=== PATIENT | male | born 1965 | race Caucasian/White ===

== ENCOUNTER 2017-06-23 19:25 | Emergency (ER) | payer OTHER ==
[2017-06-23] MEDS ORDERED: KETOROLAC TROMETHAMINE 60 MG/2 ML VIAL IM ONE (19:53)
--- NOTE | 2017-06-23 20:08 | ED Physician Documentation ---
General Adult - HISTORIAN Historian: patient - HPI Stated Complaint: flank pain Chief Complaint: General Adult Onset: days ago (3) Timing: still present, worse Further Comments: yes (52 year old male patient presents with complaints of right lateral chest wall discomfort. Patient reports pain is worse with cough. Denies nausea, vomiting, diarrhea, fever or chills. C/O cough over the past few days. Denies fall or injury. 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.) - ROS CONST: no problems EYES/ENT: none CVS/RESP: none GI/: none MS/SKIN/LYMPH: none NEURO/PSYCH: denies: headache, fainting, dizziness, difficulty walking, difficulty with speech - PAST HX Past History: other (HLD, hypothyroidism) Allergies/Adverse Reactions: Allergies Allergy/AdvReac Type Severity Reaction Status Date / Time No Known Drug Allergies Allergy Verified 06/23/17 19:35 - SOCIAL HX Smoking History: cigarettes - FAMILY HX Family History: No - VITAL SIGNS Vital Signs: Vital Signs Temp Pulse Resp BP Pulse Ox 99.4 F 101 H 16 133/95 93 06/23/17 19:25 06/23/17 19:25 06/23/17 19:25 06/23/17 19:25 06/23/17 19:25 - REVIEWED ASSESSMENTS Nursing Assessment Reviewed: Yes Vitals Reviewed: Yes Progress - Progress Progress: Medicated for pain with toradol IM ED Results Lab/Radiology - Radiology Radiology Impressions: PA chest and right ribs History: Pain and right rib pain with coughing, seizing, and movement Findings: The lungs are clear. No pleural effusions are observed. Heart size and pulmonary vascularity are normal. Right ribs are unremarkable without displaced fracture or focal rib lesion. Impression: Unremarkable right ribs. Electronically signed on Jun 23, 2017 8:25:01 PM CDT by: Gen Pulliam - Orders Orders: ED Orders Category Date Time Status RIBS UNILATERAL W/ PA CHEST [RAD] Stat Exams 06/23/17 Ordered UA W/MICRO IF INDICATED Stat Lab 06/23/17 19:34 Ordered Ketorolac Tromethamine [Toradol] Med 06/23/17 19:53 Once 60 mg IM NOW ONE General Adult Physical Exam - PHYSICAL EXAM GENERAL APPEARANCE: mild distress EENT: eye inspection normal, JACQUELINE RESPIRATORY: no resp distress, chest non-tender, breath sounds normal CVS: reg rate & rhythm, heart sounds normal, equal pulses, no murmur, no gallop , PMI nml, no JVD, no friction rub, 24 ABDOMEN: soft, no organomegaly, normal bowel sounds, no abdominal bruit, no distension, other (Pain with palpation over lateral ribs 8-9) BACK: normal inspection, no CVA tenderness SKIN: normal color, warm/dry, NR, INT, PAL, DR EXTREMITIES: non-tender, normal range of motion, no evidence of injury, no edema , J, 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
[2017-06-23 20:39] VITALS: BP 137/91
--- NOTE | 2017-06-24 00:40 | Diagnostic Imaging Report ---
EDIL WAITE (JOHN) - ER [facility] [address] [facility] [address] [place], [place]. [address] Report Submission Date: Jun 23, 2017 8:25:01 PM CDT Patient Study Name: BARBARA GUILLORY Date: Jun 23, 2017 7:56:47 PM CDT Modality Type: CR Gender: M Description: CHEST : 63 Institution: [facility] Physician: EDIL WAITE) - ER PA chest and right ribs History: Pain and right rib pain with coughing, seizing, and movement Findings: The lungs are clear. No pleural effusions are observed. Heart size and pulmonary vascularity are normal. Right ribs are unremarkable without displaced fracture or focal rib lesion. Impression: Unremarkable right ribs. Electronically signed on Jun 23, 2017 8:25:01 PM CDT by: Gen SERNA
[2017-06-24 05:54] LABS: APPEARANCE,URINE CLEAR (CLEAR); COLOR,URINE YELLOW (YELLOW)
[2017-06-24 05:55] LABS: OCCULT BLOOD,URINE NEGATIVE (NEGATIVE)
== END 2017-06-23 20:33 | disposition home or self-care (01) ==
LOC: ED 19:25
DX: M79.1 Myalgia (principal)
CPT/HCPCS: 71101; 81002; J1885; 96372; 99283

== ENCOUNTER 2017-12-22 08:55 | Outpatient (CLI) | payer OTHER ==
[2017-12-22 09:49] LABS: eGFR (African) > 60; eGFR (Non-African) > 60
== END 2017-12-22 13:28 ==
LOC: LAB 08:55
PROVIDERS: ATTEND Physician Assistant
DX: Z00.00 Encounter for general adult medical examination without abnormal findings (principal); E78.5 Hyperlipidemia, unspecified; E03.9 Hypothyroidism, unspecified
CPT/HCPCS: 36415; 80053; 80061; 84439; 84443; 84481

== ENCOUNTER 2019-06-06 09:01 | Outpatient (CLI) | payer OTHER ==
[2019-06-06 10:22] LABS: HDL 34 mg/dL (>40); eGFR (Non-African) > 60
== END 2019-06-06 09:03 ==
LOC: LAB 09:01
PROVIDERS: ATTEND Family Medicine
DX: E78.5 Hyperlipidemia, unspecified (principal); E03.9 Hypothyroidism, unspecified
CPT/HCPCS: 36415; 80053; 80061; 84443